=== PATIENT | female | born 1980 | race Caucasian/White ===

== ENCOUNTER → 2021-01-01 14:17 | Outpatient (CLI) | payer OTHER, SELFPAY ==
--- NOTE | ~2021-01-01 | MM_ITS ---
EXAMINATION: MM screening hilda BI w jeanie HISTORY: Screening TECHNIQUE: Craniocaudal and mediolateral oblique 3-D tomosynthesis images were obtained and synthetic 2-D images were generated. CAD analysis was submitted and interpreted. COMPARISON: No prior mammogram is available for comparison at this institution. BREAST PARENCHYMAL COMPOSITION: Breast composed of scattered areas of fibroglandular density FINDINGS: There is no evidence of suspicious mass, calcification, or architectural distortion to sugg est malignancy in either breast. There has been no suspicious interval change. IMPRESSION: 1. No mammographic evidence of malignancy. 2. Recommend routine screening mammography in one year. BI-RADS Category 1: Negative Reviewed, dictated and finalized at location A.
== END ==
PROVIDERS: Visit Provider Obstetrics & Gynecology
DX: Z12.31 Encounter for screening mammogram for malignant neoplasm of breast (principal)
CPT/HCPCS: 77063; 77067

== ENCOUNTER 2021-06-05 10:01 | Outpatient (CLI) | payer OTHER, SELFPAY ==
--- NOTE | 2021-06-09 13:30 | WPDHOMESLEEP ---
Sleep Study - Home Unattended Date of Study: 06/05/21 Ordering Provider: Brittany Kyle DO Interpreting Provider: Kellen Gomez MD Home Sleep Study Type: Watch PAT Height: 1.83 m Weight: 124.738 kg Body Mass Index: 37.3 Neck Circumference (inches): 17 [place]: 11 Reason for Sleep Study Hypersomnolence, restless sleep * Home Sleep Test through [facility] on 11/08/2018 that showed an AHI of 24.9. The patient has lost over 65 pounds since then. Sleep History Nereyda Diego is a 40 year old woman with complaints of waking up feeling tired and having excessive daytime sleepiness. She frequently awakens from sleep feeling short of breath. She does not awaken at night with heartburn, belching or coughing. She constantly snores loudly enough that others complain about it. She occasionally has trouble sleeping with a cold. She occasionally wakes up gasping for breath at night. She frequently has breathing problems at night observed by others. She does not sweat excessively at night. She occasionally notices her heart pounding or beating irregularly at night. She does not fall asleep during the day. She does not fall asleep involuntarily or while driving. She does not have loss of muscle tone with strong emotion. She rarely has daytime difficulties due to excessive sleepiness. She does not feel paralyzed on waking or falling asleep. She frequently has vivid dreamlike scenes upon awakening or falling asleep. She does not feel afraid to go to sleep. She does not have nightmares. She frequently remembers her dreams. She constantly has racing thoughts. She rarely feels sad, depressed or anxious. She does not have muscular tension or notice parts of her body jerking. She rarely kicks at night. She does not have crawling or aching feelings in her legs. She does not have any kind of leg pain at night. She does not have morning jaw pain, does not grind her teeth during sleep. She is not bothered by pain during the day. she is not awakened by pain during the night. She does not wake up feeling stiff in the morning. She does not wake up with sore achy muscles or pain in the neck and spine. She has headache and fatigue. Normal bedtime is 11:00 p.m. falling asleep within 5 minutes, typically waking 1-2 times at night to check her telephone. She is able to return to sleep within 10 minutes. She wakes the morning at 6:45 a.m.. On weekends, she goes to bed later, midnight and wakes a little later, 7:30 a.m.. She estimates getting 5 hours of sleep at night. She generally does not take naps. A short nap may be refreshing. She is usually drowsy for 2-3 hours after waking. She feels better in the evening compared to other times of day. Habits: never smoked tobacco. No caffeine. Alcohol 5 servings per week. No recreational drugs. [facility] Past Medical History Medical History Depression Hyperlipidemia Hypertension Surgical History Surgical History H/O: hysterectomy 2012 Family History Family History Mother Diabetes mellitus Hypertension Father Hypertension Grandparent Family history of lung cancer Heart disease Social History Social History Social History: Caffeine-None Smoking status: Never smoker Alcohol intake: current Alcohol use details: occasionally Medications Home Medications Medication Instructions Recorded Confirmed Type lisinopril 10 1 tablet PO DAILY #90 tablet 01/08/21 05/01/21 Rx mg-hydrochlorothiazide 12.5 mg tablet Sleep Procedure The sleep study was completed using [employer] a technically adequate device with seven channels: peripheral arterial tone, actigraphy, body position, snore, respiratory movement, pulse oximetry, sleep
[2021-06-09 13:50] VITALS: BMI 37.3
== END 2021-06-06 11:49 | disposition home or self-care (01) ==
LOC: ANHCSM 10:01
PROVIDERS: PCP Internal Medicine; Visit Provider Family Medicine
DX: G47.33 Obstructive sleep apnea (adult) (pediatric) (principal)
CPT/HCPCS: 95800

== ENCOUNTER 2021-10-01 09:10 | Outpatient (CLI) | payer OTHER, SELFPAY ==
--- NOTE | ~2021-10-01 | MMUS_ITS ---
EXAMINATION: MM diagnostic hilda LT w jeanie, US breast LT complete HISTORY: Left nipple inversion. TECHNIQUE: Additional 3-D tomosynthesis images of the left breast were performed and synthetic 2-D im ages were generated. CAD analysis was submitted and interpreted. High resolution complete left breast ultrasound was performed. COMPARISON: 01/01/2021 BREAST PARENCHYMAL COMPOSITION: Breast composed of scattered areas of fibroglandular density FINDINGS: MAMMOGRAPHIC FINDINGS: There are no suspicious masses, calcifications or architectural distortion in the left breast to sugg est malignancy. ULTRASOUND: Complete US of all 4 quadrants of the left breast and retroareolar region was reviewed. Normal hetero geneous echotexture without focal solid or cystic mass. IMPRESSION: 1. No evidence for malignancy in the left breast. 2. Routine yearly screening mammogram and regular clinical breast examination are recommended. BI-RADS Category 1: Negative Reviewed, dictated and finalized at location A. IMPRESSION: 1. No evidence for malignancy in the left breast. 2. Routine yearly screening mammogram and regular clinical breast examination a re recommended. BI-RADS Category 1: Negative
== END 2021-10-01 09:11 ==
PROVIDERS: PCP Internal Medicine; Visit Provider Advanced Practice Midwife
DX: N64.53 Retraction of nipple (principal)
CPT/HCPCS: 76641; 77061; 77065; G0279